=== PATIENT | male | born 1960 | race Caucasian/White ===

== ENCOUNTER 2023-03-05 18:03 | Emergency (ER) | payer BC ==
[2023-03-05] MEDS ORDERED: Silver Nitrate Applicator Each TOP ONE (18:50)
== END 2023-03-05 19:29 | disposition home or self-care (01) ==
LOC: LB.ED 18:03
DX: R04.0 Epistaxis (principal)
CPT/HCPCS: 30901; 99282; 99283

== ENCOUNTER 2025-04-08 10:12 | Emergency (ER) | payer MEDICARE, BC | END 2025-04-08 11:33 | disposition home or self-care (01) | LOC: LB.ED 10:12 | DX: S86.912A Strain of unspecified muscle(s) and tendon(s) at lower leg level, left leg, initial encounter (principal); I10 Essential (primary) hypertension; Z88.2 Allergy status to sulfonamides; Z88.0 Allergy status to penicillin; Z79.899 Other long term (current) drug therapy; W18.39XA Other fall on same level, initial encounter; Y93.89 Activity, other specified | CPT/HCPCS: 73560-LT; 99283 ==

== ENCOUNTER 2025-04-15 11:15 | Emergency (ER) | payer MEDICARE, BC | END 2025-04-15 12:07 | disposition home or self-care (01) | LOC: LB.ED 11:15 | DX: S86.812A Strain of other muscle(s) and tendon(s) at lower leg level, left leg, initial encounter (principal); S83.92XA Sprain of unspecified site of left knee, initial encounter; I10 Essential (primary) hypertension; Z88.0 Allergy status to penicillin; Z88.8 Allergy status to other drugs, medicaments and biological substances; Z79.899 Other long term (current) drug therapy; X50.1XXA Overexertion from prolonged static or awkward postures, initial encounter | CPT/HCPCS: 99283 ==